=== PATIENT | female | born 1945 | race Caucasian/White ===

== ENCOUNTER → 2017-05-24 | Outpatient (CLI) | payer MEDICARE, BC ==
[~2017-05-24] MED LIST: IOHEXOL 240 MG/ML 50ML VIAL. ONE; IOHEXOL 300 MG/ML 75 ML VIAL. IV ONE
[2017-05-24 18:08] LABS: BASO # 0.1 x10^3/uL (0.0-0.2); BASO % 1 % (0-3); EOS # 0.1 x10^3/uL (0.0-0.7); EOS % 1 % (0-3); HEMATOCRIT 43.4 % (36.0-47.0); HEMOGLOBIN 14.5 g/dL (12.0-15.5); LYMPH # 2.4 x10^3/uL (1.0-4.8); LYMPH % 36 % (24-48); MEAN CORPUSCULAR HEMOGLOBIN 30 pg (25-35); MEAN CORPUSCULAR HGB CONC 33 g/dL (31-37); MEAN CORPUSCULAR VOLUME 90 fL (79-100); MONO # 0.6 x10^3/uL (0.0-1.1); MONO % 10 % (0-9); NEUT # 3.4 x10^3uL (1.8-7.7); NEUT % 52 % (31-73); PLATELET COUNT 215 x10^3/uL (140-400); RED BLOOD COUNT 4.84 x10^6/uL (3.50-5.40); RED CELL DISTRIBUTION WIDTH 13.9 % (11.5-14.5); WHITE BLOOD COUNT 6.5 x10^3/uL (4.0-11.0)
[2017-05-24 18:26] LABS: ALBUMIN 3.5 g/dL (3.4-5.0); ALBUMIN/GLOBULIN RATIO 0.9 (1.0-1.7); CALCIUM 8.8 mg/dL (8.5-10.1); CREATININE 0.8 mg/dL (0.6-1.0); GFR 70.7; TOTAL BILIRUBIN 0.3 mg/dL (0.2-1.0); TOTAL PROTEIN 7.4 g/dL (6.4-8.2)
[2017-05-24 18:27] LABS: POTASSIUM 4.1 mmol/L (3.5-5.1)
--- NOTE | 2017-05-24 19:38 | RAD ---
Indication:LLQ PAIN WITH NAUSEA/VOMITING TECHNIQUE: CT abdomen and pelvis with 75 ml of Omnipaque 300 with multiplanar reformats. COMPARISON: None FINDINGS: Heart is normal in size. No pericardial or pleural effusion. Clear lung bases. 8mm low attenuating lesion is seen in segment 4A and in segment 2. Liver is normal in morphology. Spleen is not enlarged and show no focal lesion. No radiopaque gallstones. No pericholecystic fluid or gallbladder wall thickening. Pancreas within normal limits without peripancreatic inflammatory changes or focal pancreatic lesion. Adrenal glands show no focal mass. No nephrolithiasis or hydronephrosis. Multifocal cortical scarring is seen in the bilateral kidneys. 1.1 cm well-circumscribed low attenuating lesion is seen in the left kidney most likely simple cysts. No retroperitoneal or pelvic adenopathy. Normal appendix. No bowel obstruction. Uterus is surgically absent. No solid adnexal lesions. Layering urinary bladder stones noted. Small focus of air in the nondependent portion of the bladder, nonspecific may be related to recent catheterization. No suspicious bony lesion. IMPRESSION: 1. 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 Correlate with outside/prior imaging if available. Alternatively nonemergent MRI abdomen may be obtained for confirmation. 2. Layering urinary bladder stones. No nephrolithiasis or hydronephrosis. 3. No bowel obstruction. Electronically signed by: Young Ibarra DO (05/24/2017 7:35 PM) [facility]
[2017-05-24 19:46] LABS: BACTERIA,URINE FEW /HPF (0-FEW); BILIRUBIN,URINE NEG (NEG); CLARITY,URINE HAZY; COLOR,URINE YELLOW; GLUCOSE,URINE NEG (NEG); NITRITE,URINE NEG (NEG); SQUAMOUS EPITHELIAL CELL,UR FEW /LPF; UROBILINOGEN,URINE 0.2 mg/dL (0.2 mg/dL)
[2017-05-24 19:47] LABS: HYALINE CASTS, URINE FEW /HPF
== END | disposition home or self-care (01) ==
LOC: CT 17:11
PROVIDERS: ATTEND Family Medicine
DX: K76.9 Liver disease, unspecified (principal); N21.0 Calculus in bladder; R56.9 Unspecified convulsions; Z79.01 Long term (current) use of anticoagulants
CPT/HCPCS: 36415; 74177; 80053; 81001; 82150; 83690; 85025; Q9966; Q9967; 87086

== ENCOUNTER → 2017-07-05 | Day surgery (SDC) | payer MEDICARE, BC ==
[~2017-07-05] MED LIST changes: +APIX5TAB3 PO; -IOHEXOL 240 MG/ML 50ML VIAL. ONE; -IOHEXOL 300 MG/ML 75 ML VIAL. IV ONE; +IV RINGERS SOLUTION,LACTATED 1,000 ML IV SCH; +LEVE500T56 PO; +LIDOCAINE 1% PF 2 ML VIAL. ID PRN; +PARO10TA57 PO; +PROPOFOL 10,000 MCG/ML (20ML) VIAL IV ONE; +PROPOFOL 20 ML IV ONE; +SIMV20TA3 PO
[2017-07-05 15:30] VITALS: BP 108/75
== END ==
LOC: SURG 11:49
PROVIDERS: ATTEND Internal Medicine Gastroenterology
DX: K25.4 Chronic or unspecified gastric ulcer with hemorrhage (principal); K62.5 Hemorrhage of anus and rectum; K22.70 Barrett's esophagus without dysplasia; K21.9 Gastro-esophageal reflux disease without esophagitis; Z86.718 Personal history of other venous thrombosis and embolism; Z87.01 Personal history of pneumonia (recurrent); Z86.73 Personal history of transient ischemic attack (TIA), and cerebral infarction without residual deficits; Z87.39 Personal history of other diseases of the musculoskeletal system and connective tissue; Z90.710 Acquired absence of both cervix and uterus; Z72.89 Other problems related to lifestyle; Z79.01 Long term (current) use of anticoagulants
CPT/HCPCS: 43239; J2704; J7120

== ENCOUNTER → 2018-03-15 | Outpatient (CLI) | payer MEDICARE, BC ==
[2017-07-05 15:30] VITALS: BP 108/75
[~2018-03-15] MED LIST changes: -IV RINGERS SOLUTION,LACTATED 1,000 ML IV SCH; -LIDOCAINE 1% PF 2 ML VIAL. ID PRN; -PROPOFOL 10,000 MCG/ML (20ML) VIAL IV ONE; -PROPOFOL 20 ML IV ONE
[2018-03-15 15:01] LABS: BASO # 0.1 x10^3/uL (0.0-0.2); BASO % 1 % (0-3); EOS # 0.1 x10^3/uL (0.0-0.7); EOS % 1 % (0-3); HEMATOCRIT 43.7 % (36.0-47.0); HEMOGLOBIN 14.4 g/dL (12.0-15.5); LYMPH # 1.8 x10^3/uL (1.0-4.8); LYMPH % 35 % (24-48); MEAN CORPUSCULAR HEMOGLOBIN 30 pg (25-35); MEAN CORPUSCULAR HGB CONC 33 g/dL (31-37); MEAN CORPUSCULAR VOLUME 90 fL (79-100); MONO # 0.4 x10^3/uL (0.0-1.1); MONO % 8 % (0-9); NEUT # 2.9 x10^3uL (1.8-7.7); NEUT % 55 % (31-73); PLATELET COUNT 237 x10^3/uL (140-400); RED BLOOD COUNT 4.84 x10^6/uL (3.50-5.40); RED CELL DISTRIBUTION WIDTH 13.7 % (11.5-14.5); WHITE BLOOD COUNT 5.3 x10^3/uL (4.0-11.0)
[2018-03-15 15:06] LABS: ALBUMIN 3.6 g/dL (3.4-5.0); CALCIUM 9.2 mg/dL (8.5-10.1); CREATININE 0.8 mg/dL (0.6-1.0); GFR 70.5; POTASSIUM 3.8 mmol/L (3.5-5.1); TOTAL BILIRUBIN 0.4 mg/dL (0.2-1.0); TOTAL PROTEIN 7.2 g/dL (6.4-8.2)
[2018-03-15 15:20] LABS: BILIRUBIN,URINE NEG (NEG); CLARITY,URINE CLOUDY; COLOR,URINE YELLOW; GLUCOSE,URINE NEG (NEG); NITRITE,URINE POS (NEG); RBC,URINE OCC /HPF (0-2); UROBILINOGEN,URINE 0.2 mg/dL (0.2 mg/dL)
[2018-03-15 15:21] LABS: BACTERIA,URINE MANY /HPF (0-FEW); SQUAMOUS EPITHELIAL CELL,UR MOD /LPF; WBC,URINE 20-40 /HPF (0-4)
[2018-03-15 16:10] LABS: SEDIMENTATION RATE 23 (0-25)
[2018-03-18 15:13] LABS: GLIA IGA 2 units (0-19); GLIA IGG 3 units (0-19); TRANSGLUTAMINASE IGA AB <2 U/mL (0-3); TRANSGLUTAMINASE IGG AB <2 U/mL (0-5)
== END | disposition home or self-care (01) ==
LOC: LAB 13:33
PROVIDERS: ATTEND Family Medicine
DX: A09 Infectious gastroenteritis and colitis, unspecified (principal); R11.0 Nausea; R11.11 Vomiting without nausea; Z79.899 Other long term (current) drug therapy
CPT/HCPCS: 36415; 80053; 81001; 83516; 84443; 85025; 85651; 87086; 87186

== ENCOUNTER → 2020-08-26 | Outpatient (CLI) | payer MEDICARE, BC ==
[2017-07-05 15:30] VITALS: BP 108/75
[~2020-08-26] MED LIST changes: +SIMV20TA18 PO; -SIMV20TA3 PO
--- NOTE | 2020-08-26 15:05 | RAD ---
EXAMINATION: MG 2D BILAT SCREENING CLINICAL HISTORY: Screening TECHNIQUE: Digital craniocaudal and mediolateral oblique views of the bilateral breasts obtained. COMPARISON: 07/15/2014, 12/26/2012, 12/28/2010 BREAST COMPOSITION: The breasts are extremely dense, which lowers the sensitivity of mammography. FINDINGS: No evidence of suspicious mass, calcifications, or areas of architectural distortion. IMPRESSION: No mammographic evidence of malignancy. BI-RADS ASSESSMENT: Category 1: Negative RECOMMENDATION: Return for routine bilateral screening mammogram in one year. PQRS compliance statement - Patient information was entered into a reminder system with a target due date for the next mammogram. "Our facility is accredited by the [employer] Mammography [employer]." Electronically signed by: Oliver Doyle DO (08/26/2020 3:02 PM) [email or web address]
== END ==
LOC: MAMMO 11:43
PROVIDERS: ATTEND Family Medicine
DX: Z12.31 Encounter for screening mammogram for malignant neoplasm of breast (principal)
CPT/HCPCS: 77067